=== PATIENT | female | born 2000 | race African-American/Black ===

== ENCOUNTER 2020-03-02 02:00 | Emergency (ER) | payer OTHER, SELFPAY ==
[2020-03-02 02:04] VITALS: BP 149/96; PULSE 84; RESP 18; TEMP 36.7; O2SAT 100
--- NOTE | 2020-03-02 02:34 | ED.ABDPAIN ---
HPI - Abdominal Pain General Chief Complaint: Abdominal Pain Stated Complaint: Abd pain Time Seen by Provider: 03/02/20 02:04 Source: patient Mode of arrival: ambulatory Limitations: no limitations History of Present Illness MD elicited complaint: abdominal pain Onset (ago): hour(s) (6) Pain Consistency: constant Location: RUQ and LLQ Severity: similar to previous episodes Quality: stabbing and aching Radiation: none Migration to: no migration Exacerbating factors: movement Relieving factors: nothing Context: history of similar episodes (has happened in the past no workup) Associated symptoms: nausea Related Data Previous Rx's Medication Instructions Recorded dicyclomine 10 mg PO TID PRN #30 cap 03/02/20 ondansetron 4 mg PO Q8H PRN #20 tab 03/02/20 Allergies Allergy/AdvReac Type Severity Reaction Status Date / Time No Known Allergies Allergy Verified 03/02/20 02:34 Review of Systems Review of Systems Constitutional : No Weight loss, No Fever, No Chills ENT/Mouth : No sore throat, No Rhinorrhea Eyes: No Swelling, No Redness Cardiovascular : No Chest Pain, No SOB, NoEdema Respiratory : No Cough, No Sputum, No Wheezing Gastrointestinal : Positive Nausea, no Vomiting, no Diarrhea, positive abdominal Pain, No Hematochezia, No Melena Genitourinary : No Dysuria, No Urinary Frequency, No Hematuria, No Urgency Musculoskeletal : No joint pain, No Myalgias, No Joint Swelling Skin : No Skin Lesions, No rash Neuro : No Weakness, No Numbness, No Dizziness, No Headache Psych : No Anxiety/Panic, No Depression Heme/Lymph: No Bruising, No Lymphadenopathy Endocrine : No Polyuria, No Polydipsia All other systems reviewed and are negative. Physical Exam Vital Signs: Vital Signs: Last Vital Signs Temp 98.2 F 03/02/20 02:36 Pulse 80 03/02/20 04:00 Resp 18 03/02/20 04:00 BP 126/86 03/02/20 04:00 Pulse Ox 100 03/02/20 04:00 Body Mass Index 21.6 Appearance: Alert. Oriented X3. No acute distress. Eyes: Pupils equal, round and reactive to light. ENT: Pharynx normal. Neck: Normal inspection. Neck supple. CVS: Normal heart rate and rhythm. Pulses normal. Respiratory: No respiratory distress. Breath sounds normal. Abdomen: Soft and mild RUQ and LLQ pain no rebound or guarding, neg washington's sign Skin: Skin warm and dry. Normal skin color. Normal skin turgor. Extremities: No lower extremity edema. No calf ttp Neuro: Oriented X 3. No motor deficit. No sensory deficit. Course Course Course Narrative: patient in no distress on phone no acute findings, stable for DC no RLQ pain to suggest appendicitis MDM - Abdominal Pain MDM Narrative Medical decision making narrative: 19 yo female with abdominal pain hx of same in past but no workup, here with RUQ and LLQ pain states not related to menses occurs about 3 times a month - will need labs, US to evaluate GB - no diarrhea, IV Toradol for pain, dispo per results and findings. Lab Data Result diagrams: 03/02/20 02:51 03/02/20 02:51 Labs: Lab Results 03/02/20 03/02/20 03/02/20 Range/Units 02:51 02:51 02:51 WBC 8.7 (4.8-10.8) X10*3/uL RBC 3.73 L (4.20-5.50) X10*6/uL Hgb 10.9 L (12.0-16.0) g/dl Hct 33.7 L (37-47) % MCV 90.3 (80-98) fL MCH 29.2 (27.0-33.0) pg MCHC 32.3 (31.0-35.0) g/dl RDW 13.2 (11.0-16.0) % Plt Count 276 (160-400) X10*3/uL MPV 9.6 (9.4-12.3) fL Immature Gran % (Auto) 0.2 (0.0-0.4) % Neut % (Auto) 60.9 (45-73) % Lymph % (Auto) 28.1 (20-40) % [place] % (Auto) 9.4 (2-11) % Eos % (Auto) 0.9 (0-4) % Baso % (Auto) 0.5 (0-2) % Lymph # (Auto) 2.4 (1.2-4.9) X10*3/uL [place] # (Auto) 0.8 (0.1-1.2) X10*3/uL Eos # (Auto) 0.1 (0.0-0.4) X10*3/uL Baso # (Auto) 0.0 (0.0-0.2) X10*3/uL Abs Immat Gran (auto) 0.02 (0.00-0.03) X10*3/uL Absolute Neuts (auto) 5.3 (2.0-8.3) X10*3/uL Absolute Nucleated RBC 0.000 (0.0-0.012) X10*3/uL Nucleated RBC % (auto) 0.0 (0.0-0.2) /100WBC Hold Blue Top SEE NOTE Sodium 139 (135-145) mmol/L Potassium 3.8 (3.3-5.1) mmol/l Chloride 103 (96-108) mmol/L Carbon Dioxide 28 (22-29) mmol/L Anion Gap 12 (12-20) BUN 13 (9-16) mg/dL Creatinine 0.78 (0.5-1.4) mg/dL Estim Creat Clear Calc 103.4 Estimated GFR > 60 Random Glucose 99 (60-115) mg/dL Calcium 8.3 L (8.4-10.2) mg/dL Magnesium 1.7 (1.6-2.6) mg/dL Total Bilirubin 1.2 H (0.0-1.0) mg/dL Direct Bilirubin 0.6 H (0.0-0.5) mg/dL AST 12 (5-31) U/L ALT 6 (0-31) U/L Alkaline Phosphatase 51 (39-117) U/L Total Protein 7.2 (6.5-8.0) g/dL Albumin 4.0 (3.5-5.0) g/dL Lipase 26 (8-78) U/L Urine Color Urine Appearance Urine pH (5.0-8.0) Ur Specific [employer] (1.005-1.025) Urine Protein (NEG-TRACE) MG/DL Urine Glucose (UA) (NEG) MG/DL Urine Ketones (NEG) MG/DL Urine Blood (NEG) Urine Nitrite (NEG) Ur Leukocyte Esterase (NEG) 03/02/20 Range/Units 04:17 WBC (4.8-10.8) X10*3/uL RBC (4.20-5.50) X10*6/uL Hgb (12.0-16.0) g/dl Hct (37-47) % MCV (80-98) fL MCH (27.0-33.0) pg MCHC (31.0-35.0) g/dl RDW (11.0-16.0) % Plt Count (160-400) X10*3/uL MPV (9.4-12.3) fL Immature Gran % (Auto) (0.0-0.4) % Neut % (Auto) (45-73) % Lymph % (Auto) (20-40) % [place] % (Auto) (2-11) % Eos % (Auto) (0-4) % Baso % (Auto) (0-2) % Lymph # (Auto) (1.2-4.9) X10*3/uL [place] # (Auto) (0.1-1.2) X10*3/uL Eos # (Auto) (0.0-0.4) X10*3/uL Baso # (Auto) (0.0-0.2) X10*3/uL Abs Immat Gran (auto) (0.00-0.03) X10*3/uL Absolute Neuts (auto) (2.0-8.3) X10*3/uL Absolute Nucleated RBC (0.0-0.012) X10*3/uL Nucleated RBC % (auto) (0.0-0.2) /100WBC Hold Blue Top Sodium (135-145) mmol/L Potassium (3.3-5.1) mmol/l Chloride (96-108) mmol/L Carbon Dioxide (22-29) mmol/L Anion Gap (12-20) BUN (9-16) mg/dL Creatinine (0.5-1.4) mg/dL Estim Creat Clear Calc Estimated GFR Random Glucose (60-115) mg/dL Calcium (8.4-10.2) mg/dL Magnesium (1.6-2.6) mg/dL Total Bilirubin (0.0-1.0) mg/dL Direct Bilirubin (0.0-0.5) mg/dL AST (5-31) U/L ALT (0-31) U/L Alkaline Phosphatase (39-117) U/L Total Protein (6.5-8.0) g/dL Albumin (3.5-5.0) g/dL Lipase (8-78) U/L Urine Color YELLOW Urine Appearance CLEAR Urine pH 7.0 (5.0-8.0) Ur Specific [employer] 1.025 (1.005-1.025) Urine Protein NEG (NEG-TRACE) MG/DL Urine Glucose (UA) NEG (NEG) MG/DL Urine Ketones NEG (NEG) MG/DL Urine Blood NEG (NEG) Urine Nitrite NEG (NEG) Ur Leukocyte Esterase NEG (NEG) Discharge Plan Discharge Clinical Impression: Abdominal pain Qualifiers: Abdominal location: generalized Qualified Code(s): R10.84 - Generalized abdominal pain Patient Disposition: Home, Self-Care Instructions: Abdominal Pain (ED) Additional Instructions: return to ED for any worsening symptoms or concerns Prescriptions: New ondansetron 4 mg tablet,disintegrating 4 mg PO Q8H PRN (Reason: nausea and vomiting) Qty: 20 RF: 0 dicyclomine 10 mg capsule 10 mg PO TID PRN (Reason: abdominal discomfort) Qty: 30 RF: 0 Referrals: Physician,Unknown [Primary Care Provider] - 2 days (PCP if not better) Stand Alone Forms: Work/School Release REPLACED BY [facility] Past Medical History Attestation statement: The following information was validated with the patient. Medical History No known health problems Social History Social History (Updated 03/02/20 @ 03:06 by Michelle Patel DO) Smoking Status: Never smoker Use of substances other than those prescribed or required for medical reasons: No Advance Directives: No Advance Directives Information Provided: No
--- NOTE | 2020-03-02 02:35 | US_ITS ---
EXAMINATION: US ABDOMEN COMPLETE CLINICAL INFORMATION: RUQ pain and LLQ pain. COMPARISON: None TECHNIQUE: Real-time imaging of the abdominal viscera. FINDINGS: PANCREAS: Normal. ABDOMINAL AORTA: The proximal, mid, and distal segments are normal in caliber. INFERIOR VENA CAVA: Visualized portions are normal. LIVER: Normal. The liver is normal in size. The liver contour is normal. Parenchymal echogenicity is normal. No focal hepatic lesion. There is no intrahepatic biliary duct dilatation seen. GALLBLADDER: Normal. The gallbladder is physiologically distended without evidence of stones, sludge, polyps, wall thickening or pericholecystic fluid. COMMON BILE DUCT: Normal in caliber measuring 0.3 cm in diameter. RIGHT KIDNEY: Normal. No hydronephrosis. No renal calculi or focal parenchymal lesions. The kidney measures 10.3 cm in maximum dimension. LEFT KIDNEY: Normal. No hydronephrosis. No renal calculi or focal parenchymal lesions. The kidney measures 10.5 cm in maximum dimension. SPLEEN: Normal. The spleen measures 8.1 cm in maximum dimension. FREE FLUID: None. US/US abdomen complete IMPRESSION: Normal abdominal ultrasound. No acute sonographic findings.
[2020-03-02 02:36] VITALS: BP 115/90; PULSE 80; RESP 18; TEMP 36.8; O2SAT 99; BMI 21.6
[2020-03-02 02:54] LABS: MANUAL DIFF FLAG NO
[2020-03-02] MEDS: 0.9 % Sodium Chloride 1,000 ML 999 ML IVCONT (02:54)
[2020-03-02 02:55] LABS: Basophils Percent Auto 0.5 % (0-2); Eosinophils Absolute Auto 0.1 X10*3/uL (0.0-0.4); Eosinophils Percent Auto 0.9 % (0-4); Hematocrit 33.7 % (37-47); Hemoglobin 10.9 g/dl (12.0-16.0); Imm Gran Abs Auto 0.02 X10*3/uL (0.00-0.03); Imm Gran Pct Auto 0.2 % (0.0-0.4); Lymphocytes Absolute Auto 2.4 X10*3/uL (1.2-4.9); Lymphocytes Percent Auto 28.1 % (20-40); Mean Corpuscular HGB Conc 32.3 g/dl (31.0-35.0); Mean Corpuscular Hemoglobin 29.2 pg (27.0-33.0); Mean Corpuscular Volume 90.3 fL (80-98); Mean Platelet Volume 9.6 fL (9.4-12.3); Monocytes Absolute Auto 0.8 X10*3/uL (0.1-1.2); Monocytes Percent Auto 9.4 % (2-11); Neutrophils Absolute Auto 5.3 X10*3/uL (2.0-8.3); Neutrophils Percent Auto 60.9 % (45-73); Platelet Count 276 X10*3/uL (160-400); Red Blood Count 3.73 X10*6/uL (4.20-5.50); Red Cell Distribution Width 13.2 % (11.0-16.0); White Blood Count 8.7 X10*3/uL (4.8-10.8)
[2020-03-02] MEDS: ondansetron HCL 4 MG/2 ML VIAL IVPUSH (02:57)
[2020-03-02] MEDS: Ketorolac Tromethamine 30 MG/ML VIAL IVPUSH (02:57)
--- NOTE | 2020-03-02 03:13 | PC.NURSE ---
PT TAKEN TO ULTRA SOUND PT WALKED WITH A STEADY GAIT.
[2020-03-02 03:27] LABS: Alanine Aminotransferase 6 U/L (0-31); Alkaline Phosphatase 51 U/L (39-117); Anion Gap 12 (12-20); Aspartate Amino Transferase 12 U/L (5-31); Bilirubin Direct 0.6 mg/dL (0.0-0.5); Bilirubin Total 1.2 mg/dL (0.0-1.0); Blood Urea Nitrogen 13 mg/dL (9-16); Calcium 8.3 mg/dL (8.4-10.2); Carbon Dioxide 28 mmol/L (22-29); Chloride 103 mmol/L (96-108); Creatinine Clr Calc Pharmacy 103.4; Estimated Glomerular Filt Rate > 60; Glucose Random 99 mg/dL (60-115); Lipase 26 U/L (8-78); Magnesium 1.7 mg/dL (1.6-2.6); Potassium 3.8 mmol/l (3.3-5.1); Sodium 139 mmol/L (135-145); Total Protein 7.2 g/dL (6.5-8.0)
[2020-03-02 04:00] VITALS: BP 126/86; PULSE 80; RESP 18; O2SAT 100
[2020-03-02 04:23] LABS: Glucose Urine UA NEG (NEG); Leukocyte Esterase Urine NEG (NEG); Nitrite Urine NEG (NEG); Specific Gravity - Urine 1.025 (1.005-1.025); Urine Blood NEG (NEG); Urine Ketones NEG (NEG); Urine Protein NEG (NEG-TRACE)
[2020-03-02 04:24] LABS: Appearance Urine CLEAR; Color Urine YELLOW
[2020-03-02 04:48] LABS: UPreg QC Valid YES; Urine Pregnancy NEGATIVE (NEGATIVE)
[2020-03-02 04:56] VITALS: BP 113/76; PULSE 77; RESP 18; O2SAT 100
== END 2020-03-02 05:00 | disposition home or self-care (01) ==
PROVIDERS: Emergency Provider Emergency Medicine
DX: R10.32 Left lower quadrant pain (principal); R10.11 Right upper quadrant pain; Z79.899 Other long term (current) drug therapy
CPT/HCPCS: 36415; 76700; 80048; 80076; 81003; 81025; 83690; 83735; 85025; 96361; 96374; 96375; 99284; J1885; J2405

== ENCOUNTER 2020-07-24 01:45 | Emergency (ER) | payer OTHER, SELFPAY ==
[2020-07-24 02:39] VITALS: BMI 21.6
[2020-07-24 02:44] VITALS: BP 107/79; PULSE 85; RESP 16; TEMP 37; O2SAT 100
--- NOTE | 2020-07-24 02:55 | ED.GENADULT ---
HPI - General Adult General Chief complaint: Skin/Abscess/Foreign Body Stated complaint: Breast Pain with lump Time Seen by Provider: 07/24/20 02:55 Source: patient Mode of arrival: ambulatory History of Present Illness HPI narrative: 19-year-old female without significant past medical history who presents with a left breast mass for 2 years has not been associated with any fever, chills, redness, swelling, nipple discharge, or overlying skin changes. She states she has she has been seen by her PCP, but states they have not done any imaging to further characterize the mass. She denies any changes with her menstrual cycle but states that she feels her breasts have become more tender than usual. In addition, patient endorses that her mother was recently diagnosed with breast cancer at the age of 50. Related Data Previous Rx's Medication Instructions Recorded dicyclomine 10 mg PO TID PRN #30 cap 03/02/20 ondansetron 4 mg PO Q8H PRN #20 tab 03/02/20 Allergies Allergy/AdvReac Type Severity Reaction Status Date / Time No Known Allergies Allergy Verified 03/02/20 02:34 Review of Systems Review of Systems: Pertinent positives and negatives as stated in HPI and 10 point review of systems is otherwise negative. PMFSH Past Medical History Source: nursing notes reviewed Medical History No known health problems Social History Social History Alcohol intake: never Patient Tobacco Use Status: Tobacco use Unknown Use of substances other than those prescribed or required for medical reasons: No Advance Directives: No Advance Directives Information Provided: Yes Physical Exam Vital Signs: Vital Signs: Last Vital Signs Temp 98.6 F 07/24/20 02:44 Pulse 85 07/24/20 02:44 Resp 16 07/24/20 02:44 BP 107/79 07/24/20 02:44 Pulse Ox 100 07/24/20 02:44 Body Mass Index 21.6 VITAL SIGNS: Reviewed. GENERAL: Well developed, well nourished, in no acute distress. HEAD: Normocephalic/atraumatic EYES: PERRLA, EOMI OROPHARYNX: no oral lesions noted, posterior pharynx clear NECK: Supple, no adenopathy LUNGS: Normal breath sounds. No adventitious sounds or accessory muscle use. 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 CARDIOVASCULAR: Regular rate and rhythm without noted murmurs ABDOMEN: Soft, non-tender, non-distended with bowel sounds. Course Course Course Narrative: This is a 19-year-old female with history and clinical presentation consistent with breast exam with benign features of a mass noted in the left breast. However, patient is concerned and she was reassured and encouraged to explicitly asked for a breast ultrasound but is reassured that there were no concerning features that might otherwise suggest a more malignant process. She was then discharged in stable condition. Discharge Plan Discharge Clinical Impression: Breast mass, left Patient Disposition: Home, Self-Care Instructions: Breast Mass (ED) Additional Instructions: Follow-up with your primary care provider and specifically ask for a breast ultrasound. Recommend taking [id number] Tylenol/ibuprofen for breast tenderness that is likely associated with menstrual cycle. Return to the ER for any acute worsening of your symptoms. Prescriptions: No Action ondansetron 4 mg tablet,disintegrating 4 mg PO Q8H PRN (Reason: nausea and vomiting) Qty: 20 RF: 0 dicyclomine 10 mg capsule 10 mg PO TID PRN (Reason: abdominal discomfort) Qty: 30 RF: 0 Referrals: Physician,Unknown [Primary Care Provider] - 2 days
== END 2020-07-24 03:53 | disposition home or self-care (01) ==
PROVIDERS: Emergency Provider Student in an Organized Health Care Education/Training Program
DX: N63.23 Unspecified lump in the left breast, lower outer quadrant (principal); Z80.3 Family history of malignant neoplasm of breast
CPT/HCPCS: 99283; 99284

== ENCOUNTER 2020-09-12 12:11 | Emergency (ER) | payer OTHER, SELFPAY ==
[2020-09-12 12:39] VITALS: BP 83/46; PULSE 62; RESP 18; TEMP 36.4; O2SAT 95; BMI 21.2
--- NOTE | 2020-09-12 12:50 | PC.NURSE ---
Charge nurse informed of pt's BP. Will call back with a bed.
[2020-09-12 13:24] LABS: Basophils Absolute Auto 0.1 X10*3/uL (0.0-0.2); Basophils Percent Auto 0.3 % (0-2); Eosinophils Percent Auto 0.3 % (0-4); Hematocrit 34.2 % (37-47); Imm Gran Abs Auto 0.07 X10*3/uL (0.00-0.03); Imm Gran Pct Auto 0.5 % (0.0-0.4); Lymphocytes Absolute Auto 4.1 X10*3/uL (1.2-4.9); Lymphocytes Percent Auto 26.9 % (20-40); MANUAL DIFF FLAG NO; Mean Corpuscular HGB Conc 32.2 g/dl (31.0-35.0); Mean Corpuscular Hemoglobin 29.2 pg (27.0-33.0); Mean Corpuscular Volume 90.7 fL (80-98); Mean Platelet Volume 9.6 fL (9.4-12.3); Monocytes Absolute Auto 1.2 X10*3/uL (0.1-1.2); Monocytes Percent Auto 8.2 % (2-11); Neutrophils Absolute Auto 9.6 X10*3/uL (2.0-8.3); Neutrophils Percent Auto 63.8 % (45-73); Platelet Count 301 X10*3/uL (160-400); Red Blood Count 3.77 X10*6/uL (4.20-5.50); Red Cell Distribution Width 13.2 % (11.0-16.0); White Blood Count 15.1 X10*3/uL (4.8-10.8)
[2020-09-12 13:25] VITALS: BP 116/80; PULSE 80
[2020-09-12 13:34] VITALS: BP 127/88; PULSE 82; RESP 16
--- NOTE | 2020-09-12 13:36 | ED.GENADULT ---
HPI - General Adult General Chief complaint: General Medical Stated complaint: lots of pain after surgery yesterday Time Seen by Provider: 09/12/20 13:06 Source: patient Mode of arrival: ambulatory Limitations: no limitations History of Present Illness HPI narrative: 19-year-old female here with complaints of right foot pain. Patient is postop day 1 after bunionectomy done by [facility] Dr. Jones at an outpatient surgical center. Here d/t persistent pain unrelieved with taking the oxycodone 5 mg at home. Patient tells me she does not like taking oxycodone because she feels nauseous and lightheaded when she takes it. She is also taking a full aspirin per recommendations of Orthopedics and Tylenol as needed. Patient denies any new falls or injuries. Denies any fevers or chills. On arrival the patient was noted to have a blood pressure of 83/46. Related Data Previous Rx's Medication Instructions Recorded dicyclomine 10 mg PO TID PRN #30 cap 03/02/20 ondansetron 4 mg PO Q8H PRN #20 tab 03/02/20 Allergies Allergy/AdvReac Type Severity Reaction Status Date / Time No Known Allergies Allergy Verified 09/12/20 12:38 Review of Systems Review of Systems: Yes all other systems are reviewed and are negative Constitutional: Constitutional: Reports no additional constitutional complaints, Denies body ache(s), Denies chills, Denies fever(s), Denies headache(s) and Denies weakness Eyes: Eyes: Reports no additional eye complaints and Denies change in vision ENT: Reports system reviewed and no additional complaints, except as documented, Denies dizziness, Denies headache(s), Denies nasal congestion, Denies nasal discharge and Denies neck pain Cardiovascular: Cardiovascular: Reports no additional cardiovascular complaints, Denies chest pain, Denies leg edema and Denies dyspnea Respiratory: Respiratory: Reports no additional respiratory complaints, Denies cough and Denies dyspnea Gastrointestinal: Gastrointestinal: Reports no additional gastrointestinal complaints, Denies abdominal pain, Denies diarrhea, Denies nausea and Denies vomiting Genitourinary: Genitourinary: Reports no additional female genitourinary complaints and Denies urinary incontinence Musculoskeletal: Musculoskeletal: Reports no additional musculoskeletal complaints, Denies back pain, Reports arthralgias, Denies joint swelling, Denies neck pain, Denies numbness and Denies tingling Integumentary/Breasts: Skin/Breast: Reports system reviewed and no additional complaints, except as docu and Denies rash Neurologic: Reports system reviewed and no additional complaints, except as documented, Denies Abnormal speech present, Denies dizziness, Denies headache(s), Denies numbness, Denies tingling and Denies weakness PMFSH Past Medical History Attestation statement: The following information was validated with the patient. Source: old records reviewed and nursing notes reviewed Medical History No known health problems Social History Social History Alcohol intake: never Patient Tobacco Use Status: Tobacco use Unknown Advance Directives: No Advance Directives Information Provided: Yes Patient : No Physical Exam Vital Signs: Vital Signs: Last Vital Signs Temp 97.6 F 09/12/20 12:39 Pulse 82 09/12/20 13:34 Resp 16 09/12/20 13:34 BP 127/88 09/12/20 13:34 Pulse Ox 95 09/12/20 12:39 Body Mass Index 21.2 Const: General: cooperative, healthy appearing, comfortable and no acute distress Orientation/consciousness: patient oriented x3 Limitations: no limitations HENMT: Head: Yes normal to inspection Ears: hearing grossly normal bilaterally General nose exam: Normal external nose present Face and sinus: Yes normal facial exam Mouth: Normal oral and palatal mucosa present Throat: Yes posterior oropharynx normal Eyes: General: appearance normal, both eyes and all related structures Pupils: Equal, round and reactive pupils present Neck: Neck: Yes normal visual inspection Chest: Chest palpation & inspection: normal inspection of the chest Resp: Effort & Inspection: normal respiratory effort Auscultation: clear to auscultation bilaterally Cardio: Rate: regular rate Rhythm: regular rhythm Peripheral pulses: Peripheral pulses 2+ throughout GI: Inspection: Yes normal to inspection Palpation (GI): Soft to palpation and nontender Auscultation: normal bowel sounds Back/Spine/Pelvis: Thoracic/Lumbar Spine: thoracic and lumbar spine normal to inspection Skin: General skin exam: no rashes or lesions noted Neuro: General: patient oriented x3, no focal motor deficits and normal sensation to monofilament Cranial nerves: Yes Equal, round and reactive pupils present Cognition (Neuro): normal cognition Speech: No Abnormal speech present Gait exam (Neuro): Normal gait present Motor exam (neuro): 5/5 motor strength present throughout Extrem: Other: Posterior short splint noted on the right lower extremity Distal toes visualized and pink with normal cap refill General: Yes normal to inspection Course Course Course Narrative: 19-year-old female here postop day 1 after a bunionectomy done outpatient finding with orthopedics with reports of pain unrelieved with home oxycodone and feeling nauseous and lightheaded when she does take her medication. On arrival the patient was noted to have a blood pressure of 83/46. Therefore will check labs, place PIV, give normal saline bolus and analgesia and reassess. 1515-labs are unremarkable. The patient's dressing was removed and her surgical site was visualized. There is no surrounding erythema, drainage, warmth. Surgical Steri-Strips are in place and these were not removed.. The area was rewrapped and her postop shoe was reapplied. Her blood pressure has improved after normal saline bolus and her pain is improved. She did speak to the orthopedic on-call and they recommended she increase her oxycodone to 2 tablets every 4 hours as needed and she has adequate supply of this at home. I discussed that she needs to take it with food and she can also take her Zofran prior to this. Reviewed worrisome signs and symptoms of when to return to the emergency department. Comfortable discharge home. Medical Decision Making Medical Records Medical records reviewed: Yes I reviewed the patient's medical records. Lab Data Lab results reviewed: Yes I reviewed the patient's lab results. Result diagrams: 09/12/20 13:07 09/12/20 13:07 Labs: Lab Results 09/12/20 09/12/20 Range/Units 13:07 13:07 WBC 15.1 H (4.8-10.8) X10*3/uL RBC 3.77 L (4.20-5.50) X10*6/uL Hgb 11.0 L (12.0-16.0) g/dl Hct 34.2 L (37-47) % MCV 90.7 (80-98) fL MCH 29.2 (27.0-33.0) pg MCHC 32.2 (31.0-35.0) g/dl RDW 13.2 (11.0-16.0) % Plt Count 301 (160-400) X10*3/uL MPV 9.6 (9.4-12.3) fL Immature Gran % (Auto) 0.5 H (0.0-0.4) % Neut % (Auto) 63.8 (45-73) % Lymph % (Auto) 26.9 (20-40) % [place] % (Auto) 8.2 (2-11) % Eos % (Auto) 0.3 (0-4) % Baso % (Auto) 0.3 (0-2) % Lymph # (Auto) 4.1 (1.2-4.9) X10*3/uL [place] # (Auto) 1.2 (0.1-1.2) X10*3/uL Eos # (Auto) 0.0 (0.0-0.4) X10*3/uL Baso # (Auto) 0.1 (0.0-0.2) X10*3/uL Abs Immat Gran (auto) 0.07 H (0.00-0.03) X10*3/uL Absolute Neuts (auto) 9.6 H (2.0-8.3) X10*3/uL Absolute Nucleated RBC 0.000 (0.0-0.012) X10*3/uL Nucleated RBC % (auto) 0.0 (0.0-0.2) /100WBC Sodium 142 (135-145) mmol/L Potassium 3.6 (3.3-5.1) mmol/L Chloride 105 (96-108) mmol/L Carbon Dioxide 27 (22-29) mmol/L Anion Gap 14 (12-20) BUN 11 (9-16) mg/dL Creatinine 0.92 (0.5-1.4) mg/dL Estim Creat Clear Calc 87.7 Estimated GFR > 60 Random Glucose 133 H (60-115) mg/dL Calcium 8.8 D (8.4-10.2) mg/dL Discharge Plan Discharge Clinical Impression: Post-operative pain, S/P bunionectomy Patient Disposition: Home, Self-Care Instructions: Bunionectomy (DC) Additional Instructions: Follow your instructions given by your orthopedic doctor Follow-up with them as scheduled Before taking the oxycodone make sure you are eating a meal and you can take your sublingual Zofran 15 minutes prior to this Prescriptions: No Action ondansetron 4 mg tablet,disintegrating 4 mg PO Q8H PRN (Reason: nausea and vomiting) Qty: 20 RF: 0 dicyclomine 10 mg capsule 10 mg PO TID PRN (Reason: abdominal discomfort) Qty: 30 RF: 0 Referrals: Farideh Jones MD [Physician] - None (as scheduled ) Interventions: ED Discharge Assessment Last Done: 09/12/20 15:15 Discharge Date/Time: 09/12/20 15:15
[2020-09-12] MEDS: 0.9 % Sodium Chloride 1,000 ML 999 ML IV (13:38)
[2020-09-12] MEDS: Morphine Sulfate 4 MG/ML CARTRIDGE IVPUSH (13:39)
[2020-09-12 13:44] LABS: Anion Gap 14 (12-20); Blood Urea Nitrogen 11 mg/dL (9-16); Calcium 8.8 mg/dL (8.4-10.2); Carbon Dioxide 27 mmol/L (22-29); Chloride 105 mmol/L (96-108); Creatinine Clr Calc Pharmacy 87.7; Estimated Glomerular Filt Rate > 60; Glucose Random 133 mg/dL (60-115); Potassium 3.6 mmol/L (3.3-5.1); Sodium 142 mmol/L (135-145)
[2020-09-12] MEDS: oxyCODONE HCl Immed Release 5 MG TABLET 10 MG PO (15:14)
== END 2020-09-12 15:15 | disposition home or self-care (01) ==
PROVIDERS: Emergency Provider Emergency Medicine Emergency Medical Services
DX: G89.18 Other acute postprocedural pain (principal); Z98.890 Other specified postprocedural states
CPT/HCPCS: 36415; 80048; 85025; 96361; 96374; 99283; 99284; J2270

== ENCOUNTER 2020-11-13 23:29 | Emergency (ER) | payer OTHER, SELFPAY ==
--- NOTE | ~2020-11-13 | XR_ITS ---
EXAMINATION: XR FOOT, RIGHT CLINICAL INFORMATION: Right foot injury. Pain. COMPARISON: None TECHNIQUE: AP, lateral, and oblique views of the right foot. FINDINGS: There are 3 cannulated screws transfixing the first metatarsal at site of fracture. Hardware appears intact. Fracture line is visualized. Suspect a healing fracture of the first digit proximal phalanx. No additional fractures are seen. Mild soft tissue swelling is seen at this site. XR/XR foot RT min 3V IMPRESSION: Intact screws transfixing a first metatarsal fracture. No prior available to compare for change in alignment. There is likely a healing first digit proximal phalanx fracture. No new fracture identified.
[2020-11-13 23:42] VITALS: BP 122/90; PULSE 97; RESP 18; TEMP 37.2; O2SAT 99; BMI 21.4
--- NOTE | 2020-11-14 00:18 | ED_ITS ---
HPI - Extremity Injury (Lower) General Chief Complaint: Extremity Injury, Lower Stated Complaint: R foot inj Time Seen by Provider: 11/14/20 00:17 Source: patient Mode of arrival: ambulatory History of Present Illness HPI Narrative: Stage injured right foot during our took a hunt has history of bunion surgery on the foot having pain. Onset (ago): day(s) Related Data Previous Rx's Medication Instructions Recorded dicyclomine 10 mg capsule 10 mg PO TID PRN #30 cap 03/02/20 ondansetron 4 mg disintegrating 4 mg PO Q8H PRN #20 tab 03/02/20 tablet ibuprofen 800 mg tablet 800 mg PO Q8H PRN #30 tab 11/14/20 Allergies Allergy/AdvReac Type Severity Reaction Status Date / Time No Known Allergies Allergy Verified 09/12/20 12:38 Review of Systems Review of Systems: Constitutional: No Weight loss, No Fever, No Chills, No N ight Sweats, No Fatigue, No Malaise ENT/Mouth: No Hearing loss, No Ear Pain, No Nasal Congestion, No Sinus Pain, No Hoarseness, No sore throat, No Rhinorrhea, No Swallowing Difficulty Eyes: No Eye Pain, No Swelling, No Redness, No Foreign Body, No Discharge, No Vision Changes Cardiovascular: No Chest Pain, No SOB, No Dyspnea on Exertion, No Orthopnea, No Edema, No Palpitations Respiratory: No Cough, No Sputum, No Wheezing, No Dyspnea Gastrointestinal: No Nausea, No Vomiting, No Diarrhea, No Constipation, No abdominal Pain, No Hematochezia, No Melena Genitourinary: no irregular bleeding, No Dysuria, No Urinary Frequency, No Hematuria, No Urinary Incontinence, No Urgency, No Flank Pain, No Urinary Flow Changes, No Hesitancy Musculoskeletal: No joint pain, No Myalgias, No Joint Swelling Skin: No Skin Lesions, No rash Neuro: No Weakness, No Numbness, No Paresthesias, No Loss of Consciousness, No Dizziness, No Headache Psych: No Social Issues Heme/Lymph: No Bruising, No Bleeding,No Lymphadenopathy Endocrine: No Polyuria, No Polydipsia, No Temperature Intolerance Yes all other systems are reviewed and are negative [facility] Past Medical History Medical History No known health problems Social History Social History Alcohol intake: never Patient Tobacco Use Status: Tobacco use Unknown Advance Directives: No Advance Directives Information Provided: No Physical Exam Vital Signs: Vital Signs: Last Vital Signs Temp 98.9 F 11/13/20 23:42 Pulse 97 11/13/20 23:42 Resp 18 11/13/20 23:42 BP 122/90 H 11/13/20 23:42 Pulse Ox 99 11/13/20 23:42 Body Mass Index 21.4 Const: General: cooperative and healthy appearing; No acute distress or intoxicated appearing Nutritional Appearance: average body habitus Orientation/consciousness: patient oriented x3 HENMT: Head: Yes normal to inspection Ears: hearing grossly normal bilaterally Eyes: General: appearance normal, both eyes and all related structures Visual Davies: normal visual davies by confrontation Neck: Neck: Yes normal visual inspection, No positive Brudzinski's sign, No positive Kernig's sign and No tender Thyroid: Thyroid normal Chest: Chest palpation & inspection: normal inspection of the chest Resp: Effort & Inspection: normal respiratory effort Auscultation: clear to auscultation bilaterally Cardio: Jugular venous distension: no JVD Rhythm: regular rhythm Heart sounds: S1 normal heart sound present and S2 normal heart sound present GI: Inspection: Yes normal to inspection Percussion: Yes normal to percussion Auscultation: normal bowel sounds : General: Yes no CVA tenderness Back/Spine/Pelvis: Back: no CVA tenderness Skin: General skin exam: no rashes or lesions noted Neuro: General: patient oriented x3 Extrem: General: Yes normal to inspection Ankle/foot/toe images: 1. slight swelling Course Reevaluation(s) Reevaluation #1: Contusion type injury to the foot otherwise neurovascular intact no open wounds x-ray unremarkable for fracture. Will discharge with home care accordingly. Stable for discharge. MDM - Extremity Injury (Lower) Differential Diagnosis Differential diagnosis: Likely ankle sprain and strain (contusion to the foot); Unlikely acute internal derangement of knee, fracture of femur, fracture of hip, puncture wound of foot, fracture of toe or ankle fracture Medical Records Attestation: I reviewed the patient's medical records. Lab Data Attestation: I reviewed the patient's lab results. Imaging Data Right foot x-ray: Radiologist's impression: Melissa Dial??19??F??2000 ? Allergy/Adv: No Known Allergies Close ED Discharge Packet 09/12/20 15:08 ER Physician Documentation Kristen Velasquez NP (+) - 09/12/20 13:36 Abdomen Ultrasound 03/02/20 02:35 Foot X-Ray 11/13/20 23:50 Launch?Image [place] [id number] XRay Report Signed Patient: Melissa Dial MR#: [id number] : 2000 Acct:[id number] Age/Sex: 19 / F ADM Date: 11/13/20 Loc: HO.ED Attending Dr: Ordering Physician: Generic ED Physician Date of Service: 11/13/20 Procedure(s): XR foot RT min 3V Accession Number(s): [id number] cc: Generic ED Physician~ EXAMINATION: XR FOOT, RIGHT CLINICAL INFORMATION: Right foot injury. Pain.? COMPARISON: None? TECHNIQUE: AP, lateral, and oblique views of the right foot. FINDINGS: There are 3 cannulated screws transfixing the first metatarsal at site of fracture. Hardware appears intact. Fracture line is visualized. Suspect a healing fracture of the first digit proximal phalanx. No additional fractures are seen. Mild soft tissue swelling is seen at this site.? XR/XR foot RT min 3V IMPRESSION: Intact screws transfixing a first metatarsal fracture. No prior available to compare for change in alignment. There is likely a healing first digit proximal phalanx fracture. No new fracture identified. Dictated By: Vini Wallace MD Signed By: <Electronically signed by Vini Wallace MD in OV> 11/13/208 DD/ 235 TD/TT:? 911 Dispatcher: FLORIAN Discharge Plan Discharge Clinical Impression: Contusion of foot Patient Disposition: Home, Self-Care Instructions: Foot Contusion (ED) Additional Instructions: Rest, ice, compress, elevate X-ray did not show any evidence of fracture Supportive care discussed Return if any concerns or worsening symptoms Otherwise follow up with her foot surgeon as discussed Thank Prescriptions: New ibuprofen 800 mg tablet 800 mg PO Q8H PRN (Reason: pain) Qty: 30 RF: 0 No Action ondansetron 4 mg tablet,disintegrating 4 mg PO Q8H PRN (Reason: nausea and vomiting) Qty: 20 RF: 0 dicyclomine 10 mg capsule 10 mg PO TID PRN (Reason: abdominal discomfort) Qty: 30 RF: 0 Referrals: Physician,Unknown [Primary Care Provider] - 2 days (Primary care)
[2020-11-14] MEDS: Ibuprofen 800 MG TABLET PO (00:25)
== END 2020-11-14 01:01 | disposition home or self-care (01) ==
PROVIDERS: Emergency Provider Emergency Medicine
DX: S90.31XA Contusion of right foot, initial encounter (principal); M79.671 Pain in right foot; X58.XXXA Exposure to other specified factors, initial encounter; Y93.9 Activity, unspecified; Y92.9 Unspecified place or not applicable; Y99.9 Unspecified external cause status; Z79.899 Other long term (current) drug therapy
CPT/HCPCS: 73630; 99283

== ENCOUNTER 2021-08-11 10:36 | Emergency (ER) | payer OTHER, SELFPAY ==
[2021-08-11 10:38] VITALS: BP 136/102; PULSE 94; RESP 18; TEMP 37.2; O2SAT 99; BMI 21.6
--- NOTE | 2021-08-11 10:52 | ED.GENADULT ---
HPI - General Adult General Chief complaint: General Medical Stated complaint: Sore throat/Headache /Body aches Time Seen by Provider: 08/11/21 10:40 Source: patient Mode of arrival: ambulatory Limitations: no limitations History of Present Illness HPI narrative: Patient is a 20 year old female presenting to the emergency department today with a sore throat and feeling generally unwell. Patient states that for the last 3 days, she has had a sore throat and felt generally unwell. Patient states that she would also like her blood work checked to see if her blood counts are elevated or if they are still low. Patient denies any dizziness, lightheadedness, abdominal pain, nausea, vomiting, fever, chills, blurry vision, double vision, loss of vision, chest pain, difficulty breathing, shortness of breath, back pain, night sweats, pain with urination, increased urinary frequency, increased urinary urgency, blood in her urine or stool, syncope or a near syncopal episode, recent trauma or falls, bowel incontinence, bladder incontinence, bowel retention, bladder retention, or any other complaints at this time. Onset (ago): day(s) (3) Radiation: non-radiation Severity: mild Severity scale (1-10): 1 Quality: dull Pain Consistency: constant Relieving factors: none Exacerbating factors: none Associated symptoms: denies other symptoms Treatments prior to arrival: none Related Data Previous Rx's Medication Instructions Recorded dicyclomine 10 mg capsule 10 mg PO TID PRN abdominal 03/02/20 discomfort #30 caps ondansetron 4 mg disintegrating 4 mg PO Q8H PRN nausea and 03/02/20 tablet vomiting #20 tabs ibuprofen 800 mg tablet 800 mg PO Q8H PRN pain #30 tabs 11/14/20 penicillin V potassium 500 mg 500 mg PO BID 10 days #20 tabs 08/11/21 tablet Allergies Allergy/AdvReac Type Severity Reaction Status Date / Time No Known Allergies Allergy Verified 09/12/20 12:38 Review of Systems Constitutional: Constitutional: Reports no additional constitutional complaints, Denies chills, Denies fever(s) and Denies night sweats Eyes: Eyes: Reports no additional eye complaints, Denies blurry vision, Denies change in vision, Denies diplopia, Denies eye discharge, Denies loss of vision and Denies eye pain ENT: Denies dizziness and Reports sore throat Cardiovascular: Cardiovascular: Reports no additional cardiovascular complaints, Denies chest pain, Denies lightheadedness, Denies Loss of Consciousness and Denies dyspnea Respiratory: Respiratory: Reports no additional respiratory complaints and Denies dyspnea Gastrointestinal: Gastrointestinal: Reports no additional gastrointestinal complaints, Denies abdominal pain, Denies melena, Denies hematochezia, Denies change in bowel habits and Denies change in stool character Genitourinary: Genitourinary: Denies hematuria, Denies urinary frequency, Denies dysuria, Denies urinary incontinence, Denies urinary hesitancy and Denies urinary urgency Musculoskeletal: Musculoskeletal: Reports no additional musculoskeletal complaints, Denies numbness and Denies tingling Neurologic: Denies dizziness, Denies loss of vision, Denies numbness and Denies tingling Psychiatric: Psychiatric: Reports no additional psychiatric complaints Endocrine: Endocrine: Reports no additional endocrine complaints Hematologic/Lymphatic: Hematologic/Lymphatic: Reports no additional hematologic/lymphatic complaints Allergic/Immunologic: Allergic/Immunologic: Reports no additional allergic/immunologic complaints PMFSH Past Medical History Attestation statement: The following information was validated with the patient. Source: old records reviewed Medical History No known health problems Social History Social History Alcohol intake: never Patient Tobacco Use Status: Tobacco use Unknown Advance Directives: No Advance Directives Information Provided: No Physical Exam ED Vital Signs: Vital Signs - 24 hr 08/11/21 10:38 Temperature 98.9 F Pulse Rate 94 Respiratory Rate 18 Blood Pressure 136/102 H Pulse Oximetry 99 Oxygen Delivery Method Room Air BMI result Body Mass Index 21.6 Const General: cooperative, no acute distress, alert and awake Nutritional Appearance: well nourished Orientation/consciousness: patient oriented x3 Limitations: no limitations HENMO Head: Yes normal to inspection and Yes atraumatic Ears: hearing grossly normal bilaterally and external ears normal General nose exam: Normal external nose present, no nasal discharge noted and no epistaxis Face and sinus: Yes normal facial exam, No abrasion and No laceration Mouth: Normal oral and palatal mucosa present, no drooling, no muffled voice and other (bilateral tonsilar erythema and enlargement) Eyes General: appearance normal, both eyes and all related structures Periorbital: periorbital findings normal Eyelids: Yes eyelids normal Conjunctivae: conjunctivae normal Pupils: Equal, round and reactive pupils present EOM: EOMs intact bilaterally Neck Neck: Yes normal visual inspection, Yes full ROM and Yes no lymphadenopathy Chest Chest palpation & inspection: normal inspection of the chest Resp Effort & Inspection: normal respiratory effort and able to speak in complete sentences Auscultation: clear to auscultation bilaterally Cardio Rate: regular rate Rhythm: regular rhythm GI Inspection: Yes normal to inspection Neuro General: patient oriented x3 and moves all extremities Cranial nerves: Yes Equal, round and reactive pupils present Cognition (Neuro): normal cognition Motor exam (neuro): 5/5 motor strength present throughout Sensory Exam: Normal double simultaneous stimulation for sensation Coordination: [id number] test normal Extrem General: Yes normal to inspection, Yes full ROM and Yes capillary refill normal Psych Appearance: grossly normal Mental Status: mental status grossly normal Affect: normal affect Attitude: cooperative Thought process: Normal thought process present Thought content: Normal thought content present Insight: Good insight present (Psych) Medical Decision Making [facility] Narrative Medical decision making narrative: Patient is a 20 year old female presenting to the emergency department today with a sore throat. Patient's physical exam showed bilateral tonsilar swelling and erythema. Patient's blood work showed en elevated white blood cell count but was otherwise unremarkable. Patient's rapid strep test was negative. Patient's rapid COVID-19 and influenza tests were negative. I explained my physical exam findings as well as all test results to the patient. I answered all questions asked by the patient. I stressed the importance of the patient taking her medication as prescribed. I stressed the importance of the patient following up with her primary care provider. I stressed the importance of the patient returning to the emergency department immediately if her symptoms were to worsen or if she were to develop any dizziness, shortness of breath, difficulty breathing, chest pain, blurry vision, loss of vision, nausea, vomiting, abdominal pain, fever, chills, back pain, or any other complaints. Patient verbalized agreement and understanding with this treatment plan and discharge. Differential Diagnosis Differential Diagnosis: tonsilitis Medical Records Medical records reviewed: Yes I reviewed the patient's medical records. Lab Data Lab results reviewed: Yes I reviewed the patient's lab results. Result diagrams: 08/11/21 11:42 08/11/21 11:42 Labs: Lab Results 08/11/21 08/11/21 08/11/21 Range/Units 10:43 10:43 10:43 WBC (4.8-10.8) X10*3/uL RBC (4.20-5.50) X10*6/uL Hgb (12.0-16.0) g/dl Hct (37.0-47.0) % MCV (80.0-98.0) fL MCH (27.0-33.0) pg MCHC (31.0-35.0) g/dl RDW (11.0-16.0) % Plt Count (160-400) X10*3/uL MPV (9.4-12.3) fL Immature Gran % (Auto) (0.0-0.4) % Neut % (Auto) (45-73) % Lymph % (Auto) (20-40) % Barren % (Auto) (2-11) % Eos % (Auto) (0-4) % Baso % (Auto) (0-2) % Lymph # (Auto) (1.2-4.9) X10*3/uL Barren # (Auto) (0.1-1.2) X10*3/uL Eos # (Auto) (0.0-0.4) X10*3/uL Baso # (Auto) (0.0-0.2) X10*3/uL Abs Immat Gran (auto) (0.00-0.03) X10*3/uL Absolute Neuts (auto) (2.0-8.3) x10*3/uL Absolute Nucleated RBC (0.0-0.012) X10*3/uL Nucleated RBC % (auto) (0.0-0.2) /100WBC Sodium (135-145) mmol/L Potassium (3.3-5.1) mmol/L Chloride (96-108) mmol/L Carbon Dioxide (22-29) mmol/L Anion Gap (12-20) BUN (9-16) mg/dL Creatinine (0.5-1.4) mg/dL Estim Creat Clear Calc Estimated GFR Random Glucose (60-115) mg/dL Calcium (8.4-10.2) mg/dL Total Bilirubin (0.0-1.0) mg/dL AST (5-31) U/L ALT (0-31) U/L Alkaline Phosphatase (39-117) U/L Total Protein (6.5-8.0) g/dL Albumin (3.5-5.0) g/dL COVID-19 ([facility]) Negative (Negative) COVID-19 Clin Com See Note Influenza Type A ([facility]) Negative (Negative) Influenza Type B ([facility]) Negative (Negative) Influenza A & B Note See Note S. pyogenes GrpA [facility] Negative (Negative) 08/11/21 08/11/21 Range/Units 11:42 11:42 WBC 14.5 H (4.8-10.8) X10*3/uL RBC 3.96 L (4.20-5.50) X10*6/uL Hgb 11.4 L (12.0-16.0) g/dl Hct 35.2 L (37.0-47.0) % MCV 88.9 (80.0-98.0) fL MCH 28.8 (27.0-33.0) pg MCHC 32.4 (31.0-35.0) g/dl RDW 12.8 (11.0-16.0) % Plt Count 308 (160-400) X10*3/uL MPV 9.2 L (9.4-12.3) fL Immature Gran % (Auto) 0.3 (0.0-0.4) % Neut % (Auto) 81.5 H (45-73) % Lymph % (Auto) 10.6 L (20-40) % Barren % (Auto) 7.2 (2-11) % Eos % (Auto) 0.1 (0-4) % Baso % (Auto) 0.3 (0-2) % Lymph # (Auto) 1.5 (1.2-4.9) X10*3/uL Barren # (Auto) 1.0 (0.1-1.2) X10*3/uL Eos # (Auto) 0.0 (0.0-0.4) X10*3/uL Baso # (Auto) 0.1 (0.0-0.2) X10*3/uL Abs Immat Gran (auto) 0.05 H (0.00-0.03) X10*3/uL Absolute Neuts (auto) 11.8 H (2.0-8.3) x10*3/uL Absolute Nucleated RBC 0.000 (0.0-0.012) X10*3/uL Nucleated RBC % (auto) 0.0 (0.0-0.2) /100WBC Sodium 137 (135-145) mmol/L Potassium 3.9 (3.3-5.1) mmol/L Chloride 104 (96-108) mmol/L Carbon Dioxide 25 (22-29) mmol/L Anion Gap 12 (12-20) BUN 10 (9-16) mg/dL Creatinine 0.72 (0.5-1.4) mg/dL Estim Creat Clear Calc 111.2 Estimated GFR > 60 Random Glucose 93 (60-115) mg/dL Calcium 8.8 (8.4-10.2) mg/dL Total Bilirubin 2.1 H (0.0-1.0) mg/dL AST 14 (5-31) U/L ALT < 6 (0-31) U/L Alkaline Phosphatase 57 (39-117) U/L Total Protein 8.0 (6.5-8.0) g/dL Albumin 4.3 (3.5-5.0) g/dL COVID-19 ([facility]) (Negative) COVID-19 Clin Com Influenza Type A ([facility]) (Negative) Influenza Type B ([facility]) (Negative) Influenza A & B Note S. pyogenes GrpA [facility] (Negative) Discharge Plan Discharge Clinical Impression: Acute bacterial tonsillitis Patient Disposition: Home, Self-Care Instructions: Tonsillitis (ED) Additional Instructions: Follow up with your primary care provider. Return to the emergency department immediately if your symptoms worsen or if you develop any dizziness, shortness of breath, difficulty breathing, chest pain, blurry vision, loss of vision, nausea, vomiting, abdominal pain, fever, chills, back pain, or any other complaints. Prescriptions: New penicillin V potassium 500 mg tablet 500 mg PO BID 10 Days Qty: 20 0RF Discontinued ibuprofen 800 mg tablet 800 mg PO Q8H PRN (Reason: pain) Qty: 30 0RF No Action ondansetron 4 mg tablet,disintegrating 4 mg PO Q8H PRN (Reason: nausea and vomiting) Qty: 20 0RF dicyclomine 10 mg capsule 10 mg PO TID PRN (Reason: abdominal discomfort) Qty: 30 0RF ibuprofen 800 mg tablet 800 mg PO Q8H PRN (Reason: pain) Qty: 30 0RF Referrals: Lindy Guy PA [Primary Care Provider] - Stand Alone Forms: Work/School Release Interventions: ED Discharge Assessment Last Done: 08/11/21 12:21 Discharge Date/Time: 08/11/21 12:21 Print Language: Burkinan
--- NOTE | 2021-08-11 10:53 | PC.NURSE ---
Pt arrives from home cc sore throat that started a few days ago, body aches. pt states that it hurts to swallow. Airway intact.
[2021-08-11 11:14] LABS: IDNOW Serial# 9DB6401D; Influenza A Negative (Negative); Influenza B2 Negative (Negative)
[2021-08-11 11:15] LABS: COVID-19 Test Negative (Negative); IDNOW Serial# 55D5AD1C; Strep A Nucleic Acid Negative (Negative)
[2021-08-11 11:49] LABS: MANUAL DIFF FLAG NO
[2021-08-11 11:51] LABS: Basophils Absolute Auto 0.1 X10*3/uL (0.0-0.2); Basophils Percent Auto 0.3 % (0-2); Eosinophils Percent Auto 0.1 % (0-4); Hematocrit 35.2 % (37.0-47.0); Hemoglobin 11.4 g/dl (12.0-16.0); Imm Gran Abs Auto 0.05 X10*3/uL (0.00-0.03); Imm Gran Pct Auto 0.3 % (0.0-0.4); Lymphocytes Absolute Auto 1.5 X10*3/uL (1.2-4.9); Lymphocytes Percent Auto 10.6 % (20-40); Mean Corpuscular HGB Conc 32.4 g/dl (31.0-35.0); Mean Corpuscular Hemoglobin 28.8 pg (27.0-33.0); Mean Corpuscular Volume 88.9 fL (80.0-98.0); Mean Platelet Volume 9.2 fL (9.4-12.3); Monocytes Percent Auto 7.2 % (2-11); Neutrophils Absolute Auto 11.8 x10*3/uL (2.0-8.3); Neutrophils Percent Auto 81.5 % (45-73); Platelet Count 308 X10*3/uL (160-400); Red Blood Count 3.96 X10*6/uL (4.20-5.50); Red Cell Distribution Width 12.8 % (11.0-16.0); White Blood Count 14.5 X10*3/uL (4.8-10.8)
[2021-08-11 12:11] LABS: Alanine Aminotransferase < 6 U/L (0-31); Albumin Level 4.3 g/dL (3.5-5.0); Alkaline Phosphatase 57 U/L (39-117); Anion Gap 12 (12-20); Aspartate Amino Transferase 14 U/L (5-31); Bilirubin Total 2.1 mg/dL (0.0-1.0); Blood Urea Nitrogen 10 mg/dL (9-16); Calcium 8.8 mg/dL (8.4-10.2); Carbon Dioxide 25 mmol/L (22-29); Chloride 104 mmol/L (96-108); Creatinine Clr Calc Pharmacy 111.2; Estimated Glomerular Filt Rate > 60; Glucose Random 93 mg/dL (60-115); Potassium 3.9 mmol/L (3.3-5.1); Sodium 137 mmol/L (135-145)
== END 2021-08-11 12:21 | disposition home or self-care (01) ==
PROVIDERS: Physician Assistant Medical; Emergency Provider Emergency Medicine Emergency Medical Services; PCP Physician Assistant Medical
DX: J03.90 Acute tonsillitis, unspecified (principal); R51.9 Headache, unspecified; M79.10 Myalgia, unspecified site; Z79.899 Other long term (current) drug therapy; Z20.822 Contact with and (suspected) exposure to COVID-19
CPT/HCPCS: 36415; 80053; 85025; 87502; 87635; 87651; 99283

== ENCOUNTER 2024-09-28 05:21 | Emergency (ER) | payer OTHER, SELFPAY ==
[2024-09-28 05:28] VITALS: BP 128/94; PULSE 91; RESP 18; TEMP 37.2; O2SAT 98; BMI 20.4
[2024-09-28 06:29] LABS: Resp Syncy Virus RNA Qual PCR NEGATIVE (Negative); SARS COV2 PCR INHOUSE NEGATIVE (Negative)
[2024-09-28 06:36] VITALS: BP 122/91; PULSE 81; RESP 16; TEMP 37.2; O2SAT 98
[2024-09-28 06:39] LABS: IDNOW Serial# 6674DD1D; Strep A Nucleic Acid Negative (Negative)
--- NOTE | 2024-09-28 07:04 | PC.NURSE ---
pt resting comfortably on stretcher with eyes closed, respirations even and unlabored, no apparent distress, awaiting ED provider. call storm w/in reach
--- NOTE | 2024-09-28 07:39 | PC.NURSE ---
Pt resting quietly in room; respi. panel and strep throat swab all negative; awaiting provider eval
[2024-09-28 08:00] VITALS: BP 129/87; PULSE 89; RESP 16; TEMP 37.1; O2SAT 97
--- NOTE | 2024-09-28 08:02 | ED_ITS ---
HPI - Fever General Chief Complaint: Fever Stated Complaint: fever Time Seen by Provider: 09/28/24 07:55 Source: patient Mode of arrival: ambulatory Limitations: no limitations History of Present Illness ED Provider: Nydia Santos PA-C HPI Narrative: Female without significant medical history presents to the ED due to 3 days of subjective fever, sore throat, body aches. Patient states she woke up 3 days ago with chills and body aches, later checked her temperature with oral thermometer with T-max of 101.8?, with worsening sore throat. Patient reports she is also experiencing some nasal congestion and intermittent nausea. Patient states she has been taking Tylenol to manage temperature with mild effect. Denies sick contacts, recent travel. Denies chest pain, shortness of breath, vomiting, diarrhea, black/tarry stool, headaches, visual changes, lightheadedness, dizziness Related Data Previous Rx's ?Medication ?Instructions ?Recorded dicyclomine 10 mg capsule 10 mg PO TID PRN abdominal 0 03/02/20 discomfort #30 caps ondansetron 4 mg disintegrating 4 mg PO Q8H PRN nausea and 03/02/20 tablet vomiting #20 tabs ibuprofen 800 mg tablet 800 mg PO Q8H PRN pain #30 t abs 11/14/20 penicillin V potassium 500 mg 500 mg PO BID 10 days #2 0 tabs 08/11/21 tablet Allergies Allergy/AdvReac Type Severity Reaction Status Date / Time No Known Allergies Allergy Verified 09/28/24 05:29 Review of Systems Review of Systems: CONST: POS for fever, body aches and chills. HENT: Negative for neck pain/stiffness, headache. POS sore throat, nasal congestion EYES: Negative for discharge/pain or vision changes. RESP: Negative for cough/hemoptysis and shortness of breath. CV: Negative chest pain, difficulty breathing, palpitations. ABD: Negative pain. POS nausea : Negative increase frequency, dysuria, blood in urine or stool. MUSC: Negative for muscle aches, edema. SKIN: Negative rash, lesions/sores. NEURO: Negative headache, dizziness, weakness. [facility] Past Medical History Attestation statement: The following information was validated with the patient. Source: old records reviewed and nursing notes reviewed Medical History No known health problems Social History Social History Alcohol intake: never Patient Tobacco Use Status: Tobacco use Unknown Smoked in Last 30 Days: No Use of substances other than those prescribed or required for medical reasons: No Advance Directives: No Advance Directives Information Provided: Yes Patient : No Physical Exam Vital Signs: Vital Signs: Last Vital Signs Temp 98.4 F 09/28/24 10:16 Pulse 76 09/28/24 10:16 Resp 16 09/28/24 10:16 BP 119/85 09/28/24 10:16 Pulse Ox 99 09/28/24 10:16 O2 Del Method Room Air 09/28/24 10:16 BMI result Body Mass Index 20.4 GENERAL APPEARANCE: ?AxOx4, generally well-appearing, no acute distress. HEENT: ?NC, AT. MMM. EOMI, clear conjunctiva, uvula midline, no tonsillar edema, no tonsillar exudates, mild erythema of posterior oropharynx NECK: ?Supple without lymphadenopathy.? No stiffness or restricted ROM. HEART:? Normal rate and regular rhythm, normal S1/S2, no m/r/g LUNGS:? CTAB, moving air well. No crackles or wheezes are heard. ABDOMEN: ?Soft, nontender, nondistended with good bowel sounds heard. BACK: No CVAT, no obvious deformity. EXTREMITIES: ?Without cyanosis, clubbing or edema. NEUROLOGICAL: ?Grossly nonfocal. Alert and oriented, moving all 4 extremities. Observed to ambulate with normal gait. Skin: ?Warm and dry without any rash. Medications Administered Discontinued Medications Generic Name Dose Route Start Last Admin Trade Name Ibrahimaq PRN Reason Stop Dose Admin Lactated Ringer's 1,000 mls @ 999 mls/hr 09/28/24 08:07 09/28/24 08:53 Lr IV 09/28/24 09:07 999 mls/hr .Q1H1M ONE Administration Acetaminophen 1,000 mg in 100 mls @ 400 mls/hr 09/28/24 08:07 09/28/24 09:56 Ofirmev IV 09/28/24 08:21 Infused ONCE ONE Infusion Ketorolac Tromethamine 15 mg 09/28/24 08:07 09/28/24 08:52 Ketorolac Tromethamine 15 Mg/Ml Vial IVPUSH 09/28/24 08:08 15 mg ONCE ONE Administration Medical Decision Making Medical Decision Making [facility] Narrative: Female without significant medical history presents to the ED due to 3 days of subjective fever, sore throat, body aches. Patient states she woke up 3 days a go with chills and body aches, later checked her temperature with oral thermometer with T-max of 101.8?, with worsening sore throat. Patient reports she is also experiencing some nasal congestion and intermittent nausea. Patient states she has been taking Tylenol to manage temperature with mild effect. Denies sick contacts, recent travel. Took Tylenol last night. VSS, BP of 129/87, pulse rate 89, respiratory rate 16, patient afebrile with oral temperature of 98.8?, O2 saturation 97% on room air. On physical exam lungs clear to auscultation bilaterally, cardiac exam reveals normal rate and rhythm, no murmurs/rubs/gallops, abdomen soft, nondistended nontender. Oropharynx with mild erythema, no uvular edema, uvula midline, no tonsillar edema, no tonsillar exudates noted, no cervical lymphadenopathy, full ROM of neck Labs revealed leukocytosis of 14.5, H and H stable, no evidence of electrolyte abnormality. Viral serology negative, rapid strep negative Patient currently afebrile in the department with oral temp of 98.8?. Does not meet sepsis criteria at this time. Patient states she has not had appetite, has not drinking much fluids or eating much. We will medicate patient with IV fluids, IV Zofran, IV Tylenol. Patient is nontoxic appearing, without neck stiffness, no rash, at this time I believe patient has viral illness. Will medicate and reassess how she is feeling after. Course 10:34- patient reports sore throat is significantly improved after IV Tylenol. Patient eating crackers drinking ciro ria in the department, feels comfortable for discharge home. I counseled patient on alternating Tylenol and ibuprofen for sore throat, fever, body aches. Patient has primary care provider, I encouraged her to follow up with them this week to ensure improvement. Differential Diagnosis Differential Diagnoses: The differential diagnosis associated with the pres entation includes Flu COVID RSV Pharyngitis Viral illness Admission/Observation Consideration of admission/observation: Escalation of care including admission/observation considered Lab Data [facility] Lab Attestation statement: I reviewed the patient's lab results. Labs: Lab Results 09/28/24 Range/Units 05:44 Influenza Type A (PCR) NEGATIVE (Negative) Influenza Type B (PCR) NEGATIVE (Negative) RSV RNA Qual (PCR) NEGATIVE (Negative) SARS-CoV-2 RNA (RT-PCR) NEGATIVE (Negative) S. pyogenes GrpA CHING Negative (Negative) External Record Review External record reviewed: Inpatient record, Office record and Outpatient record Discharge Plan Discharge Clinical Impression: Viral infection Patient Disposition: Home, Self-Care Instructions: Viral Syndrome (ED) Additional Instructions: You were evaluated in the ED today due to fever, sore throat, body aches. Your lab work revealed an elevated white blood cell count of 14.1, which indicates your body is fighting some sort of viral infection. Your viral panel of flu/COVID/RSV was negative. Your rapid strep test for strep throat was negative. At this time I believe your body is fighting a viral illness, they are many viruses that we did not test for. Viral illnesses are self-limiting, meaning that they will improve over time. Please ensure that you were getting plenty of fluids through water, sports drinks, Pedialyte. Eat a bland diet until tolerated. To manage fever and body aches you can alternate 500 mg of Tylenol and 400 mg of ibuprofen every 6 hours. Please follow up with your primary care provider to ensure improvement. Please return to the emergency department if you experience fevers over 100.4?, fevers that are not responding to Tylenol, chest pain, shortness of breath, blood in the vomit, blood in the stool, worsening sore throat, difficulty speaki ng, difficulty breathing, difficulty swallowing your oral secretions, or any new/worsening/concerning symptoms. Prescriptions: No Action ondansetron 4 mg tablet,disintegrating 4 mg PO Q8H PRN (Reason: nausea and vomiting) Qty: 20 0RF dicyclomine 10 mg capsule 10 mg PO TID PRN (Reason: abdominal discomfort) Qty: 30 0RF ibuprofen 800 mg tablet 800 mg PO Q8H PRN (Reason: pain) Qty: 30 0RF penicillin V potassium 500 mg tablet 500 mg PO BID 10 Days Qty: 20 0RF Print Language: Welsh
[2024-09-28] MEDS: Lactated Ringers 1,000 ML 999 ML IV (08:53)
--- NOTE | 2024-09-28 08:59 | PC.NURSE ---
Pt medicated per orders for 10/10 throat pain; provider aware of pain level
[2024-09-28 10:16] VITALS: BP 119/85; PULSE 76; RESP 16; TEMP 36.9; O2SAT 99
[2024-09-28 10:51] VITALS: BP 111/65; PULSE 70; RESP 16; TEMP 36.8; O2SAT 99
== END 2024-09-28 10:53 | disposition home or self-care (01) ==
PROVIDERS: Emergency Provider Emergency Medicine
DX: B34.9 Viral infection, unspecified (principal); R50.9 Fever, unspecified; J02.9 Acute pharyngitis, unspecified; Z03.818 Encounter for observation for suspected exposure to other biological agents ruled out
CPT/HCPCS: 87637; 87651; 96361; 96365; 96375; 99284; J0131; J1885; J7120